=== PATIENT | male | born 1950 | race Caucasian/White ===

== ENCOUNTER → 2017-03-15 | Outpatient (CLI) | payer MEDICARE ==
[~2017-03-15] MED LIST: ASPI-496 PO; LEVO112T4 PO; OLME1TAB25 PO; PRAV80TA2 PO; TOPI25TA8 PO
== END | disposition home or self-care (01) ==
LOC: CFH 13:48
PROVIDERS: ATTEND Internal Medicine Cardiovascular Disease
DX: Z13.6 Encounter for screening for cardiovascular disorders (principal); R07.89 Other chest pain; E78.00 Pure hypercholesterolemia, unspecified; Z82.49 Family history of ischemic heart disease and other diseases of the circulatory system
CPT/HCPCS: 75571

== ENCOUNTER 2020-03-19 08:08 | Observation (INO) | payer MEDICARE ==
[~2020-03-19] VITALS: Ht 172.7 cm; Wt 102.8 kg
[2020-03-19 08:43] LABS: BASOPHILS % (AUTO) 1 % (0-1); EOSINOPHILS % (AUTO) 4 % (1-7); LYMPHOCYTES % (AUTO) 22 % (22-44); MEAN CORPUSCULAR HEMOGLOBIN 29.5 pg (27.5-34.5); MEAN PLATELET VOLUME 10.3 fL (7.4-10.4); MONOCYTES % (AUTO) 11 % (2-9); NEUTROPHILS % (AUTO) 62 % (42-75); PLATELET COUNT 181 x10^3/uL (130-400); RED BLOOD COUNT 5.18 x10^6/uL (4.38-5.82)
[2020-03-19 08:49] LABS: MD NO
[2020-03-19] MEDS ORDERED: ROSU20TA2 PO (08:53)
[2020-03-19 08:54] LABS: ANION GAP 3 mmol/L (5-15); CALCIUM 8.9 mg/dL (8.5-10.1); CHLORIDE 112 mmol/L (98-107)
[2020-03-19] MEDS ORDERED: HYDROCHLOROTH12.5 MG PO (08:54)
[2020-03-19 08:55] LABS: CREATININE 0.85 mg/dL (0.7-1.3)
[2020-03-19] MEDS ORDERED: DOXY25TA52 PO (08:59)
[2020-03-19] MEDS ORDERED: ONDA8TAB16 SL (08:59)
[2020-03-19] MEDS ORDERED: INDO50CA15 PO (08:59)
[2020-03-19 09:00] LABS: INTERNATIONAL NORMALIZED RATIO 0.98 (0.93-1.1); PROTHROMBIN TIME 10.1 Seconds (9.6-11.5)
[2020-03-19 09:01] VITALS: BP 156/86
[2020-03-19] MEDS ORDERED: CEFAZOLIN PMX 1GM/50ML 50 ML ONE (09:22)
[2020-03-19] MEDS ORDERED: MIDAZOLAM 1 MG/ML, 5ML ONE (09:22)
[2020-03-19] MEDS ORDERED: FENTANYL PF 100 MCG/2ML ONE (09:22)
[2020-03-19] MEDS ORDERED: LIDOCAINE 2%, 20ML ONE (09:22)
[2020-03-19] MEDS ORDERED: CEFAZOLIN 1,000 MG ONE (09:23)
[2020-03-19] MEDS ORDERED: ONDANSETRON 2MG/ML, 2ML ONE (09:55)
[2020-03-19] MEDS ORDERED: Hold all anticoagulants for 24 hours MC PRN (11:30)
[2020-03-19] MEDS ORDERED: ONDANSETRON ODT 8 MG SL PRN (12:00)
[2020-03-19] MEDS ORDERED: ACETAMINOPHEN 325 MG TABLET PO PRN (12:30)
[2020-03-19] MEDS ORDERED: ONDANSETRON 2MG/ML, 2ML IVPush PRN (12:30)
[2020-03-19 13:07] VITALS: BP 139/79
[2020-03-19] MEDS: SODIUM CHLORIDE 0.9% 1,000 ML IV SCH ×2 (13:44→19:06)
[2020-03-19 20:17] VITALS: BP 132/80
[2020-03-19] MEDS: SODIUM CHLORIDE FLUSH 10ML SYR IVF SCH (20:21)
[2020-03-19 20:49] VITALS: BP 151/82
[2020-03-19] MEDS ORDERED: DOXYLAMINE 25MG TABLET PO SCH (21:00)
[2020-03-20 00:45] VITALS: BP 135/76
[2020-03-20] MEDS: SODIUM CHLORIDE 0.9% 1,000 ML IV SCH ×2 (00:54→08:30)
[2020-03-20] MEDS ORDERED: ACET325T26 PO (08:34)
[2020-03-20] MEDS: SODIUM CHLORIDE FLUSH 10ML SYR IVF SCH (08:54)
[2020-03-20 08:55] VITALS: BP 156/89
[2020-03-20] MEDS ORDERED: HYDROCHLOROTHIAZIDE 12.5 MG CAPSULE PO SCH (09:00)
[2020-03-20] MEDS ORDERED: ASPIRIN 81 MG TABLET EC PO SCH (09:00)
[2020-03-20] MEDS ORDERED: INDOMETHACIN 50 MG CAPSULE PO SCH (09:00)
[2020-03-20] MEDS ORDERED: LEVOTHYROXINE 112 MCG TABLET PO SCH (09:00)
[2020-03-20] MEDS ORDERED: OLME5TAB4 PO (09:25)
== END 2020-03-20 10:21 | disposition home or self-care (01) ==
LOC: CACL 08:08 → ORIP 11:29 → 5SO 11:32 → CACL 11:55 → 5SO 12:35 → DCLOUNGE 03-20 10:21
PROVIDERS: ADMIT Internal Medicine Clinical Cardiac Electrophysiology; ATTEND Internal Medicine Clinical Cardiac Electrophysiology
DX: I45.5 Other specified heart block (principal); R42 Dizziness and giddiness; I10 Essential (primary) hypertension; E78.5 Hyperlipidemia, unspecified; F41.9 Anxiety disorder, unspecified; F17.210 Nicotine dependence, cigarettes, uncomplicated; Z79.82 Long term (current) use of aspirin; Z79.899 Other long term (current) drug therapy
CPT/HCPCS: 33208; 36415; 71045; 71046; 80048; 85025; 85610; 93005; 99156; 99157; C1779; C1785; C1892; G0378; J0690; J2250; J2405; J3010; J3490; J7030